=== PATIENT | male | born 1970 | race Caucasian/White ===

== ENCOUNTER 2016-08-10 12:20 | Emergency (ER) | payer SELFPAY | END 2016-08-10 12:50 | disposition left against medical advice (07) | LOC: ER1 12:20 | DX: Z53.21 Procedure and treatment not carried out due to patient leaving prior to being seen by health care provider (principal) ==

== ENCOUNTER 2021-12-18 23:03 | Emergency (ER) | payer SELFPAY ==
[~2021-12-18 23:03] MED LIST: FLONASE 0.05% N16 GM; SUDAFED 60 MG T60 MG PO; TESSALON PERLE100 MG PO; Voltaren Gel 1 % TOP; ZYRTEC10 MG PO
[2021-12-19] MEDS ORDERED: PROVENTIL HFA6.7 GM INH (01:50)
[2021-12-19] MEDS ORDERED: MONODOX100 MG PO (01:50)
== END 2021-12-19 01:55 | disposition home or self-care (01) ==
LOC: ER1 23:03
DX: U07.1 COVID-19 (principal); J02.9 Acute pharyngitis, unspecified; R40.2410 Glasgow coma scale score 13-15, unspecified time; E11.9 Type 2 diabetes mellitus without complications; I10 Essential (primary) hypertension
CPT/HCPCS: 0240U; 71045; 87081; 87880; 99284

== ENCOUNTER 2021-12-19 09:18 | Emergency (ER) | payer SELFPAY ==
[~2021-12-19] VITALS: Ht 175.3 cm; Wt 156.0 kg
[~2021-12-19 09:18] MED LIST changes: +MONODOX100 MG PO; +PROVENTIL HFA6.7 GM INH
== END 2021-12-19 13:01 | disposition home or self-care (01) ==
LOC: ER1 09:18
DX: U07.1 COVID-19 (principal); I10 Essential (primary) hypertension; E11.9 Type 2 diabetes mellitus without complications
CPT/HCPCS: 99283; M0222